=== PATIENT | female | born 1990 | race Caucasian/White ===

== ENCOUNTER 2016-10-20 19:46 | Emergency (ER) | payer BC, OTHER ==
[~2016-10-20] VITALS: Ht 167.6 cm; Wt 83.9 kg
[2016-10-20] MEDS ORDERED: NS IV 1000 ML 1,000 ML IV ONE (20:10)
[2016-10-20 20:27] LABS: BILIRUBIN,URINE NEGATIVE (NEGATIVE); KETONES,URINE NEGATIVE (NEGATIVE); LEUKOCYTE ESTERASE ,URINE NEGATIVE (NEGATIVE); NITRITE,URINE NEGATIVE (NEGATIVE); PH,URINE 5 (5-9); PROTEIN,URINE 1+ (NEGATIVE); UROBILINOGEN,URINE NORMAL (NORMAL)
[2016-10-20 20:41] LABS: WBC,URINE 0-2 /HPF
[2016-10-20 21:13] LABS: BASOPHILS % (AUTO) 0 % (0-10); EOSINOPHILS # (AUTO) 0.2 10^3/uL (0.0-0.3); EOSINOPHILS % (AUTO) 2 % (0-10); LYMPHOCYTES # (AUTO) 2.7 X 10^3 (1.0-4.0); LYMPHOCYTES % (AUTO) 24 % (12-44); MEAN CORPUSCULAR HEMOGLOBIN 29 PG (25-34); MEAN CORPUSCULAR HGB CONC 33 G/DL (32-36); MEAN CORPUSCULAR VOLUME 89 FL (80-99); MEAN PLATELET VOLUME 9.6 FL (7.4-10.4); MONOCYTES # (AUTO) 0.7 X 10^3 (0.0-1.0); MONOCYTES % (AUTO) 7 % (0-12); NEUTROPHILS # (AUTO) 7.7 X 10^3 (1.8-7.8); NEUTROPHILS % (AUTO) 68 % (42-75); PLATELET COUNT 277 10^3/uL (130-400); RED BLOOD COUNT 4.59 10^6/uL (4.35-5.85); RED CELL DISTRIBUTION WIDTH 13.7 % (10.0-14.5); WHITE BLOOD COUNT 11.3 10^3/uL (4.3-11.0)
--- NOTE | 2016-10-20 21:32 | ED General ---
General Chief Complaint: General Problems/Pain Stated Complaint: LIGHTHEADED Nursing Triage Note: PT TO ED 7 W/ C/O FEELING LIGHTHEADED, DIZZY, SEEING SPOTS ET TINGLING/REDNESS TO FACE X3 DAYS WHILE AT WORK. DENIES ANY RECENT CHANGES IN DIET, ACTIVITY, MEDS Nursing Sepsis Screen: No Definite Risk Source of Information: Patient Exam Limitations: No Limitations History of Present Illness Time Seen by Provider: 20:10 Initial Comments Here with report of intermittently feeling lightheaded and dizzy at work and throughout the day for the last 3 days. Reports eating and drinking okay. No difficulty with wound to the bathroom. Denies other concerns. Timing/Duration: 2-3 Days, Getting Worse, Intermittent Severity: Mild Associated Systoms: No Chest Pain, No Cough, No Diaphoresis, No Fever/Chills, No Headaches, No Nausea/Vomiting, No Shortness of Air, Weakness Allergies and Home Medications Allergies Coded Allergies: egg (Verified Allergy, Unknown, 10/20/16) vancomycin (Verified Allergy, Unknown, 10/20/16) Home Medications No Active Prescriptions or Reported Meds Constitutional: see HPI, No chills, No fever, weakness (lightheadedness) EENTM: No nose congestion, No throat pain Respiratory: No cough, No short of breath Cardiovascular: No chest pain, No edema, No palpitations Gastrointestinal: No abdominal pain, No diarrhea, No nausea, No vomiting Genitourinary: no symptoms reported Musculoskeletal: no symptoms reported Skin: no symptoms reported Psychiatric/Neurological: See HPI All Other Systems Reviewed Negative Unless Noted: Yes Past Smlzrti-Jyxkzj-Docxue Hx Patient Social History Alcohol Use: Denies Use Recreational Drug Use: No Smoking Status: Never a Smoker 2nd Hand Smoke Exposure: No Recent Foreign Travel: No Contact w/Someone Who Travel: No Recent Infectious Disease Expo: No Recent Hopitalizations: No Surgeries HX Surgeries: Yes (lipoma removal. Pilonidal cyst.) Respiratory Hx Respiratory Disorders: No Cardiovascular Hx Cardiac Disorders: No Neurological Hx Neurological Disorders: No Genitourinary Hx Genitourinary Disorders: No Gastrointestinal Hx Gastrointestinal Disorders: No Musculoskeletal Hx Musculoskeletal Disorders: No Psychosocial Hx Psychiatric Problems: Yes Behavioral Health Disorders: Anxiety Reviewed Nursing Assessment Reviewed/Agree w Nursing PMH: Yes Family Medical History Significant Family History: No Pertinent Family Hx Physical Exam Vital Signs Vital Sign - Last 12Hours 10/20/16 19:56 Temp 98.1 Pulse 85 Resp 20 B/P (MAP) 149/79 Pulse Ox 98 O2 Delivery Room Air Capillary Refill : Less Than 3 Seconds General Appearance: No Apparent Distress, WD/WN HEENT: PERRL/EOMI, Pharynx Normal Neck: Non Tender, Supple Respiratory: Lungs Clear, No Respiratory Distress Cardiovascular: Regular Rate, Rhythm, No Murmur Gastrointestinal: Non Tender, Soft Back: Normal Inspection, No CVA Tenderness, No Vertebral Tenderness Extremity: Non Tender, No Calf Tenderness Neurologic/Psychiatric: Alert, Oriented x3 Skin: Normal Color, Warm/Dry Progress/Results/Core Measures Results/Orders Lab Results Laboratory Tests Test 10/20/16 20:18 10/20/16 20:55 Range/Units Urine Color YELLOW Urine Clarity SLIGHTLY CLOUDY Urine pH 5 5-9 Urine Specific [place] 1.020 1.016-1.022 Urine Protein 1+ H NEGATIVE Urine Glucose (UA) NEGATIVE NEGATIVE Urine Ketones NEGATIVE NEGATIVE Urine Nitrite NEGATIVE NEGATIVE Urine Bilirubin NEGATIVE NEGATIVE Urine Urobilinogen NORMAL NORMAL MG/DL Urine Leukocyte Esterase NEGATIVE NEGATIVE Urine RBC (Auto) 1+ H NEGATIVE Urine RBC RARE /HPF Urine WBC 0-2 /HPF Urine Squamous Epithelial Cells 10-25 H /HPF Urine Crystals NONE /LPF Urine Bacteria FEW H /HPF Urine Casts NONE /LPF Urine Mucus LARGE H /LPF Urine Culture Indicated NO White Blood Count 11.3 H 4.3-11.0 10^3/uL Red Blood Count 4.59 4.35-5.85 10^6/uL Hemoglobin 13.3 11.5-16.0 G/DL Hematocrit 41 35-52 % Mean Corpuscular Volume 89 80-99 FL Mean Corpuscular Hemoglobin 29 25-34 PG Mean Corpuscular Hemoglobin Concent 33 32-36 G/DL Red Cell Distribution Width 13.7 10.0-14.5 % Platelet Count 277 130-400 10^3/uL Mean Platelet Volume 9.6 7.4-10.4 FL Neutrophils (%) (Auto) 68 42-75 % Lymphocytes (%) (Auto) 24 12-44 % Monocytes (%) (Auto) 7 0-12 % Eosinophils (%) (Auto) 2 0-10 % Basophils (%) (Auto) 0 0-10 % Neutrophils # (Auto) 7.7 1.8-7.8 X 10^3 Lymphocytes # (Auto) 2.7 1.0-4.0 X 10^3 Monocytes # (Auto) 0.7 0.0-1.0 X 10^3 Eosinophils # (Auto) 0.2 0.0-0.3 10^3/uL Basophils # (Auto) 0.0 0.0-0.1 10^3/uL Sodium Level 139 135-145 MMOL/L Potassium Level 3.4 L 3.6-5.0 MMOL/L Chloride Level 106 98-107 MMOL/L Carbon Dioxide Level 23 21-32 MMOL/L Anion Gap 10 5-14 MMOL/L Blood Urea Nitrogen 14 7-18 MG/DL Creatinine 0.86 0.60-1.30 MG/DL Estimat Glomerular Filtration Rate > 60 BUN/Creatinine Ratio 16 Glucose Level 88 70-105 MG/DL Calcium Level 9.2 8.5-10.1 MG/DL Magnesium Level 2.2 1.8-2.4 MG/DL Total Bilirubin 0.4 0.1-1.0 MG/DL Aspartate Amino Transf (AST/SGOT) 18 5-34 U/L Alanine Aminotransferase (ALT/SGPT) 19 0-55 U/L Alkaline Phosphatase 60 40-136 U/L Total Protein 7.5 6.4-8.2 GM/DL Albumin 4.3 3.2-4.5 GM/DL My Orders Orders - KATIA PAK MD Cbc With Automated Diff (10/20/16 20:10) Comprehensive Metabolic Panel (10/20/16 20:10) Magnesium (10/20/16 20:10) Ua Culture If Indicated (10/20/16 20:10) Saline Lock/Iv-Start (10/20/16 20:10) Ns Iv 1000 Ml (Sodium Chloride 0.9%) (10/20/16 20:10) Urine Bedside (10/20/16 20:10) Thyroid Stimulating Hormone (10/20/16 22:21) Medications Given in ED Current Medications Medications Dose Ordered Sig/Hi Route Start Time Stop Time Status Last Admin Dose Admin Sodium Chloride 1,000 ml @ 0 mls/hr Q0M ONCE IV 10/20/16 20:10 10/20/16 20:12 DC 10/20/16 21:01 1,000 MLS/HR Vital Signs/I&O Vital Sign - Last 12Hours 10/20/16 19:56 Temp 98.1 Pulse 85 Resp 20 B/P (MAP) 149/79 Pulse Ox 98 O2 Delivery Room Air Blood Pressure Mean: 102 Point of Care Testing Urine -Bedside: Negative Progress Note : Progress Note Seen and evaluated. IV, labs, UA, UCG, normal saline 1 L bolus ordered. Monitor patient. 2220: Is a Little better. No acute findings. Discharged home with return precautions. Patient and family verbalize understanding of instructions and agreement with plan. Departure Impression Impression: Primary Impression: Fatigue Qualified Codes: R53.83 - Other fatigue Additional Impression: Dehydration Disposition: HOME, SELF-CARE Condition: Improved Departure-Patient Inst. Decision time for Depature: 22:27 Referrals: SHAWNA WEBER MD (PCP/Family) Primary Care Physician Patient Instructions: Dehydration, Adult (DC) Add. Discharge Instructions: All discharge instructions reviewed with patient and/or family. Voiced understanding. Drink plenty of fluids and eat a normal diet. Follow-up with your DrCharline in a few days for recheck. Return for worsening, fever, vomiting, weakness, rhythm problems or other concerns as needed. Get plenty of rest. Scripts No Active Prescriptions or Reported Meds KATIA PAK MD Oct 20, 2016 21:32
[2016-10-20 21:38] LABS: ALANINE AMINOTRANSFERASE 19 U/L (0-55); ALBUMIN 4.3 GM/DL (3.2-4.5); ANION GAP 10 MMOL/L (5-14); ASPARTATE AMINO TRANSFERASE 18 U/L (5-34); BILIRUBIN,TOTAL 0.4 MG/DL (0.1-1.0); BLOOD UREA NITROGEN 14 MG/DL (7-18); BUN/CREATININE RATIO 16; CALCIUM 9.2 MG/DL (8.5-10.1); CARBON DIOXIDE 23 MMOL/L (21-32); CHLORIDE 106 MMOL/L (98-107); CREATININE SERUM 0.86 MG/DL (0.60-1.30); GFR ESTIMATED > 60; GLUCOSE 88 MG/DL (70-105); MAGNESIUM 2.2 MG/DL (1.8-2.4); POTASSIUM 3.4 MMOL/L (3.6-5.0); SODIUM 139 MMOL/L (135-145); TOTAL PROTEIN 7.5 GM/DL (6.4-8.2)
[2016-10-20 22:32] VITALS: BP 123/82
== END 2016-10-20 22:32 | disposition home or self-care (01) ==
LOC: ER 19:50
DX: R53.83 Other fatigue (principal); E86.0 Dehydration; F41.9 Anxiety disorder, unspecified
CPT/HCPCS: 36415; 80053; 81000; 83735; 84443; 84703; 85025; 96360

== ENCOUNTER → 2017-03-22 | Outpatient (CLI) | payer BC ==
--- NOTE | 2017-03-22 18:12 | Diagnostic Imaging Report ---
CLINICAL INDICATION: Patient with pain and swelling on anterior part of the foot over metatarsals. No known injury. EXAM: X-ray of the right foot, three views. COMPARISON: None. FINDINGS AND IMPRESSION: 1: There is concern for possible slight concave deformity and sclerosis involving the proximal metaphysis/base of the second metatarsal bone, which is best seen on the oblique view. This may represent a stress fracture. Correlation for pain in this region is suggested. 2: Otherwise, the remainder of the right foot is unremarkable. There are no significant degenerative changes. Dictated by: Dictated on workstation # [id number]
== END ==
LOC: RAD 16:55
PROVIDERS: ATTEND Nurse Practitioner Family
DX: M79.89 Other specified soft tissue disorders (principal); M79.671 Pain in right foot
CPT/HCPCS: 73630

== ENCOUNTER → 2017-05-03 | Outpatient (CLI) | payer BC ==
--- NOTE | 2017-05-03 12:25 | Diagnostic Imaging Report ---
INDICATION: Right foot stress fracture. Time of exam: 11:13 AM Correlation is made with prior study from 03/22/2017. There has been development of some periosteal reaction and callus in the distal aspect of the second metatarsal, consistent with healing fracture. Remaining metatarsals are intact and alignment is normal. Midfoot and hindfoot are unremarkable. IMPRESSION: Healing distal second metatarsal fracture when compared with exam from 03/22/2017. Dictated by: Dictated on workstation # [id number]
== END ==
LOC: RAD 10:37
PROVIDERS: ATTEND Family Medicine
DX: M84.374D Stress fracture, right foot, subsequent encounter for fracture with routine healing (principal)
CPT/HCPCS: 73630

== ENCOUNTER 2018-03-07 17:11 | Emergency (ER) | payer BC ==
[~2018-03-07] VITALS: Ht 167.6 cm; Wt 90.7 kg
[2018-03-07] MEDS ORDERED: HYDROcodone/APAP 5 MG/325 MG (LORTAB) TAB PO STA (18:18)
[2018-03-07] MEDS ORDERED: CYCLOBENZAPRINE 10 MG (FLEXERIL) TAB PO STA (18:18)
[2018-03-07] MEDS ORDERED: DEXAMETHASONE 1 MG/ML 5 ML UDC (DECADRON) ORAL SOLUTION PO STA (18:55)
[2018-03-07] MEDS ORDERED: LIDOCAINE 1% INJ 20 ML 20 ML VIAL INJ ONE (19:00)
[2018-03-07] MEDS ORDERED: DEXAMETHASONE 10 MG/ML (DECADRON) 1 ML VIAL IM ONE (19:00)
--- NOTE | 2018-03-07 19:35 | ED Back Pain ---
General Chief Complaint: General Problems/Pain Stated Complaint: R LEG PAIN,L HAND NUMBNESS Nursing Triage Note: AMB TO ROOM WITH MALE PATIENT REPORTS SINCE SEPTEMBER HAS HAS PROBLEM WITH HER SCIATICA. IS BEEN SEEING A CHIROPRACTOR WHO TOLD THOUGHT IT WAS HER PIRIFORMIS MUSCLE CAUISNG THE PROBLEMS HAD TAKEN MUSCLE REXLANT WITH NO RELIEF. HAS BEEN ONLY TAKING 200MG OF IBUBROFEN ALSO REPORTS THAT FOR LAST SEVERAL DAYS HAS HAD NUMBNESS IN FACE DOWN R ARM NOW IT IS IN LEFT ARM FOR PAST 3 DAYS. TEARFUL ON ADMIT Nursing Sepsis Screen: No Definite Risk History of Present Illness Date Seen by Provider: Mar 07, 2018 Time Seen by Provider: 17:30 Initial Comments 28-year-old female presents for low back and right hip pain. She was diagnosed with sciatica this summer and her symptoms have been intermittent since then. She states for the last several days they have gotten significantly worse. She denies any urinary or bowel incontinence or retention. She has been taking ibuprofen 200 mg every 6 hours with minimal relief. In addition she has intermittent paresthesias on her face and arms. She denies any injury to her back or neck. She was seen initially at this summer by her primary care provider but has not had follow-up. She has been seeing a chiropractor but some improvement until recently. Location: Lumbar Spine, Paraspinous Muscles Timing/Duration: Getting Worse Severity: Moderate Pain/Injury Location: Back Radiation: Buttocks, Upper Legs (right) Associated Symptoms: muscle spasms, weakness (right lower extremity), lower back pain; No loss of bladder control, No loss of bowel control Allergies and Home Medications Allergies Coded Allergies: egg (Verified Allergy, Unknown, 10/20/16) vancomycin (Verified Allergy, Unknown, 10/20/16) Home Medications No Active Prescriptions or Reported Meds Patient Home Medication List Home Medication List Reviewed: Yes Review of Systems Constitutional: no symptoms reported, see HPI : Yes Expected Date of Delivery: Nov 03, 2017 LMP: Jan 29, 2018 Control/STD Prophylaxis: None Musculoskeletal: see HPI, back pain, muscle cramps, muscle weakness (right lower extremity) All Other Systems Reviewed Negative Unless Noted: Yes Past Wbwhdoa-Dumdzz-Aukigo Hx Past Med/Social Hx: Reviewed Nursing Past Med/Soc Hx Patient Social History Alcohol Use: Denies Use Recreational Drug Use: No Smoking Status: Never a Smoker 2nd Hand Smoke Exposure: No Recent Foreign Travel: No Contact w/Someone Who Travel: No Recent Infectious Disease Expo: No Recent Hopitalizations: No Past Medical History Surgeries: Yes (FATTY TUMOR FROM SIDE, EGD, PILONIDAL CYST) Respiratory: No Cardiac: No Neurological: No Genitourinary: No Gastrointestinal: No Musculoskeletal: No Endocrine: No HEENT: No Cancer: No Psychosocial: No Anxiety Integumentary: No Blood Disorders: No Family Medical History No Pertinent Family Hx Physical Exam Vital Signs Vital Signs - First Documented 03/07/18 17:17 Temp 96.9 Pulse 126 Resp 18 B/P (MAP) 151/72 (98) Pulse Ox 95 O2 Delivery Room Air Capillary Refill : Less Than 3 Seconds Height, Weight, BMI Height: 5'6.00" Weight: 200lbs. oz. 90.878655uf; BMI Method:Stated General Appearance: No Apparent Distress, WD/WN Cardiovascular: Regular Rate, Rhythm, No Edema, No Murmur, Normal Peripheral Pulses Respiratory: Chest Non Tender, Lungs Clear, Normal Breath Sounds Gastrointestinal: Normal Bowel Sounds, Non Tender, Soft Back: Normal Inspection, No CVA Tenderness; No CVA Tenderness (L), No CVA Tenderness (R); Decreased Range of Motion (secondary to pain), Muscle Spasm Neurologic/Psychiatric: Alert, Oriented x3, No Motor/Sensory Deficits, Normal Mood/Affect Skin: Normal Color, Warm/Dry Patient ambulates with an antalgic gait favoring the right lower extremity. She is able to rise on to her toes however she had not toe walk on the right. She can walk on her heels bilaterally. She has weakness 4-/5 Hip flexors on the right, otherwise power is 5/5 L5-S1 on the right and 5/5 L4-S1 on the left. She has a positive straight leg raising sign on the right. Progress/Results/Core Measures Results/Orders My Orders Orders - VERONICA STARR Urine Bedside (03/07/18 18:06) Cyclobenzaprine Tablet (Flexeril Tablet) (03/07/18 18:18) Hydrocodone/Apap 5/325 Tablet (Lortab 5 (03/07/18 18:18) Lidocaine 1% Inj 20 Ml (Xylocaine 1% Inj (03/07/18 19:00) Dexamethasone Injection (Decadron Inject (03/07/18 19:00) Medications Given in ED Current Medications Medications Dose Ordered Sig/Hi Route Start Time Stop Time Status Last Admin Dose Admin Dexamethasone Sodium Phosphate 10 mg ONCE ONCE IM 03/07/18 19:00 03/07/18 19:01 DC 03/07/18 19:17 10 MG Lidocaine HCl 20 ml ONCE ONCE INJ 03/07/18 19:00 03/07/18 19:01 DC 03/07/18 19:17 20 ML Vital Signs/I&O 03/07/18 03/07/18 17:17 19:38 Temp 96.9 96.9 Pulse 126 126 Resp 18 18 B/P (MAP) 151/72 (98) 151/72 (98) Pulse Ox 95 95 O2 Delivery Room Air Blood Pressure Mean: 98 Urine -Bedside: Positive Progress Progress Note : Time: 17:30 Progress Note Patient seen and evaluated, recommended obtaining a urine hCG, pending those results will get a CT scan of the lumbar spine. We will give Flexeril 10 mg and Vicodin 5/325 mg for pain and muscle spasms. 1750 patient's hCG positive, results discussed with the patient and her significant other. Due to this we will not be able to obtain the CT scan. Additional options for assessing her spine may include an MRI scheduled by her primary care provider. She does have exquisite tenderness over the right trochanteric bursa. I believe this is due to her gait and favoring the right lower leg. She agreed to a trochanteric bursa injection, right. Discussed patient's assessment and plan of care with Dr. Espinoza, concurred with this. 1830 using sterile technique, the skin over the right greater trochanter was prepped with Betadine. The trochanteric bursa was then injected with 10 mg of Decadron and 8 ML's of 1% lidocaine. A sterile Band-Aid was applied. The patient tolerated the procedure well, and ice pack was placed over the injection site. The patient's neurovascular status was intact, post procedure. 0 discharge instructions and return precautions reviewed with the patient. Stressed the importance that she began taking a vitamin and follow up with her primary care provider, and schedule with REQUIREMENTS MANAGER. Departure Impression Primary Impression: First trimester Additional Impressions: Lumbar spine pain Lumbosacral radiculopathy at L4 Trochanteric bursitis of right hip Disposition: HOME, SELF-CARE Condition: Improved Departure-Patient Inst. Decision time for Depature: 19:00 Referrals: SHAWNA WEBER MD (PCP/Family) Primary Care Physician Patient Instructions: - The First Month, Radiculopathy (DC), Sciatica (DC) Add. Discharge Instructions: Begin a vitamin, take 1 daily with food. Increase water intake, one bottle every 2 hours while awake. Use crutches to ambulate when you have weakness in her right leg or to assist with back pain. Consider physical therapy, [facility] You may take Tylenol 650 mg every 6 hours for pain. Continue doing your back exercises. Apply ice pack to right hip and low back for 20 minutes every 2 hours. Schedule follow-up appointment with and set up care with REQUIREMENTS MANAGER. Return to emergency department for increased or new back pain, bowel or bladder incontinence or retention, vaginal bleeding, or new problems. All discharge instructions reviewed with patient and/or family. Voiced understanding. Scripts No Active Prescriptions or Reported Meds VERONICA STARR Mar 07, 2018 19:35
[2018-03-07 19:38] VITALS: BP 151/72
== END 2018-03-07 19:40 | disposition home or self-care (01) ==
LOC: EDUNIT# 17:11 → ER 17:12
DX: O99.89 Other specified diseases and conditions complicating pregnancy, childbirth and the puerperium (principal); M54.17 Radiculopathy, lumbosacral region; M70.61 Trochanteric bursitis, right hip; O99.340 Other mental disorders complicating pregnancy, unspecified trimester; F41.9 Anxiety disorder, unspecified; Z88.0 Allergy status to penicillin; Z3A.00 Weeks of gestation of pregnancy not specified
CPT/HCPCS: 84703; 99284

== ENCOUNTER → 2018-03-13 | Outpatient (CLI) | payer BC ==
[~2018-03-13] MED LIST: HYDR-4226 PO
--- NOTE | 2018-03-13 18:19 | Diagnostic Imaging Report ---
INDICATION: Severe back pain during . FINDINGS: Obstetrical ultrasonography is performed with transabdominal and transvaginal approach. There is an intrauterine gestational sac containing yolk sac and pole. Morphology is unremarkable. [place]-rump length is 0.5 cm, indicating gestational age of 6 weeks and 2 days. There is no significant adjacent hematoma. Maternal adnexal regions are unremarkable with an approximately 3.6 cm cyst on the left. There is also nabothian cyst noted in the cervix. IMPRESSION: Findings are compatible with intrauterine gestation with estimated age of 6 weeks and 2 days. Sonographic EDC is 11/05/2018. Dictated by: Dictated on workstation # [id number]
== END ==
LOC: RAD 15:21
PROVIDERS: ATTEND Family Medicine
DX: O26.891 Other specified pregnancy related conditions, first trimester (principal); M54.9 Dorsalgia, unspecified; Z3A.01 Less than 8 weeks gestation of pregnancy
CPT/HCPCS: 76801; 76817

== ENCOUNTER 2018-03-14 10:25 | Emergency (ER) | payer BC ==
[~2018-03-14] VITALS: Ht 167.6 cm; Wt 90.7 kg
[2018-03-14] MEDS ORDERED: HYDROcodone/APAP 7.5 MG/325 MG (LORTAB, LORCET PLUS) TABLET PO ONE (11:30)
--- NOTE | 2018-03-14 11:32 | ED Lower Extremity ---
General Chief Complaint: Lower Extremity Stated Complaint: BACK PAIN Nursing Triage Note: Pt reports R leg pain x6 months and intermittent numbness to extremities. Pt was seen in ED for these symptoms on 03/07 and was unable to have CT scan completed due to positive test. Pt had f/u w/ Dr Gonzales yesterday and had US done. Pt having increased pain today including pain to lower back, unkown results from yesterdays appt. Pt called Dr. Murray's office today to report increased pain and was told to come to ED for evaluation. Nursing Sepsis Screen: No Definite Risk Source: patient Exam Limitations: no limitations History of Present Illness Date Seen by Provider: Mar 14, 2018 Time Seen by Provider: 11:28 Initial Comments ER with about 6 months worth of right leg pain, muscle spasms and numbness. She also has right low back pain. No known injury at the onset of this. She was seen here on 03/07/18 due to the pain worsening and was found to have a positive test so imaging studies such as CT could not be ordered at that time. She did have an ultrasound done yesterday which showed a normal intrauterine 6 weeks and 2 days. She denies any of the red flags such as fevers or chills, dysuria, loss of bowel or bladder control, saddle anesthesia or history of cancer or IV drug use. She states that she has tried physical therapy, acupuncture which did transiently improve her symptoms but the best they could do was to reduce the pain to 2 out of 10. Currently her pain is 9 out of 10. She did receive an injection over the right trochanteric bursa of lidocaine and Decadron on 03/07 which she states improved her pain for a couple of hours before the pain returned. Onset: just prior to arrival Severity: moderate Pain/Injury Location: right hip, right leg Method of Injury: unknown Modifying Factors: Worse With Movement Allergies and Home Medications Allergies Coded Allergies: egg (Verified Allergy, Unknown, 10/20/16) vancomycin (Verified Allergy, Unknown, 10/20/16) Home Medications Hydrocodone/Acetaminophen 1 Each Tablet, 1 EACH PO Q4H PRN for PAIN-MODERATE Prescribed by: SIERRA BARONE on 03/14/18 1137 Patient Home Medication List Home Medication List Reviewed: Yes Review of Systems Constitutional: see HPI; No chills EENTM: see HPI Respiratory: no symptoms reported Cardiovascular: no symptoms reported Genitourinary: no symptoms reported Musculoskeletal: see HPI, back pain Skin: no symptoms reported Psychiatric/Neurological: No Symptoms Reported Past Beezvrb-Qwxbol-Zrjtsi Hx Patient Social History Alcohol Use: Denies Use Recreational Drug Use: No Smoking Status: Never a Smoker 2nd Hand Smoke Exposure: No Recent Foreign Travel: No Contact w/Someone Who Travel: No Recent Infectious Disease Expo: No Recent Hopitalizations: No Seasonal Allergies Seasonal Allergies: No Past Medical History Surgeries: Yes (FATTY TUMOR FROM SIDE, EGD, PILONIDAL CYST) Respiratory: No Cardiac: No Neurological: No Expected Date of Delivery: Nov 05, 2018 Genitourinary: No Gastrointestinal: No Musculoskeletal: No Endocrine: No HEENT: No Cancer: No Psychosocial: No Anxiety Integumentary: No Blood Disorders: No Family Medical History No Pertinent Family Hx Physical Exam Vital Signs Vital Signs - First Documented 03/14/18 10:34 Temp 98.3 Pulse 103 Resp 18 B/P (MAP) 138/84 (102) Pulse Ox 98 O2 Delivery Room Air Capillary Refill : Less Than 3 Seconds Height, Weight, BMI Height: 5'6.00" Weight: 200lbs. oz. 90.554053ob; BMI Method:Stated General Appearance: WD/WN, no apparent distress HEENT: PERRL/EOMI, normal ENT inspection Neck: non-tender, full range of motion Respiratory: no respiratory distress, no accessory muscle use Hips: left hip non-tender; bilateral hip normal inspection, bilateral hip normal range of motion; right hip soft tissue tenderness (tenderness over the trochanteric bursa on the right) Legs: bilateral leg non-tender, bilateral leg normal inspection, bilateral leg normal range of motion; right leg other (positive straight leg raise test on right) Knees: bilateral knee non-tender, bilateral knee normal inspection, bilateral knee normal range of motion Ankles: bilateral ankle non-tender, bilateral ankle normal inspection, bilateral ankle normal range of motion Neurologic/Psychiatric: alert, normal mood/affect, oriented x 3 Skin: normal color, warm/dry Her reported pain is in the L4-S1 distribution on the right. She does have a positive straight leg raise test on the right. Her plantar flexion of the right foot is 4 out of 5 in strength, on the left 5 out of 5. Progress/Results/Core Measures Results/Orders Lab Results Laboratory Tests Test 03/14/18 12:00 03/14/18 12:32 Range/Units White Blood Count 11.4 H 4.3-11.0 10^3/uL Red Blood Count 4.43 4.35-5.85 10^6/uL Hemoglobin 12.9 11.5-16.0 G/DL Hematocrit 39 35-52 % Mean Corpuscular Volume 89 80-99 FL Mean Corpuscular Hemoglobin 29 25-34 PG Mean Corpuscular Hemoglobin Concent 33 32-36 G/DL Red Cell Distribution Width 14.2 10.0-14.5 % Platelet Count 277 130-400 10^3/uL Mean Platelet Volume 9.3 7.4-10.4 FL Neutrophils (%) (Auto) 75 42-75 % Lymphocytes (%) (Auto) 18 12-44 % Monocytes (%) (Auto) 6 0-12 % Eosinophils (%) (Auto) 1 0-10 % Basophils (%) (Auto) 0 0-10 % Neutrophils # (Auto) 8.6 H 1.8-7.8 X 10^3 Lymphocytes # (Auto) 2.1 1.0-4.0 X 10^3 Monocytes # (Auto) 0.6 0.0-1.0 X 10^3 Eosinophils # (Auto) 0.1 0.0-0.3 10^3/uL Basophils # (Auto) 0.0 0.0-0.1 10^3/uL Sodium Level 133 L 135-145 MMOL/L Potassium Level 4.1 3.6-5.0 MMOL/L Chloride Level 105 98-107 MMOL/L Carbon Dioxide Level 19 L 21-32 MMOL/L Anion Gap 9 5-14 MMOL/L Blood Urea Nitrogen 10 7-18 MG/DL Creatinine 0.71 0.60-1.30 MG/DL Estimat Glomerular Filtration Rate > 60 BUN/Creatinine Ratio 14 Glucose Level 95 70-105 MG/DL Calcium Level 9.2 8.5-10.1 MG/DL My Orders Orders - SIERRA BARONE APRN Hydrocodone/Apap 7.5/325 Tab (Lortab 7. (03/14/18 11:30) Cbc With Automated Diff (03/14/18 11:28) Basic Metabolic Panel (03/14/18 11:28) Ua Culture If Indicated (03/14/18 11:28) Medications Given in ED Current Medications Medications Dose Ordered Sig/Hi Route Start Time Stop Time Status Last Admin Dose Admin Acetaminophen/ Hydrocodone Bitart 1 ea ONCE ONCE PO 03/14/18 11:30 03/14/18 11:31 DC 03/14/18 11:31 1 EA Vital Signs/I&O 03/14/18 10:34 Temp 98.3 Pulse 103 Resp 18 B/P (MAP) 138/84 (102) Pulse Ox 98 O2 Delivery Room Air Blood Pressure Mean: 102 Departure Communication (Admissions) Due to the absence of any cauda equina symptoms or red flags I'm unable to order MRI in the emergency room of the lumbar spine. These need to be prior also advised by insurance. I did speak with Dr. Gonzales. I will fax my note in their office and they will proceed with obtaining prior authorization for the lumbar spine MRI. [facility], [place] NAME: MONSE REARDON [facility] REC#: [id number] PT STATUS: REG CLI : 1990 PHYSICIAN: SHAWNA GONZALES MD ADMIT DATE: 03/13/18/RAD Draft Date of Exam:03/13/18 US OB<14 WKS SNGLE W/TRANSVAG INDICATION: Severe back pain during . FINDINGS: Obstetrical ultrasonography is performed with transabdominal and transvaginal approach. There is an intrauterine gestational sac containing yolk sac and pole. Morphology is unremarkable. [place]ove-rump length is 0.5 cm, indicating gestational age of 6 weeks and 2 days. There is no significant adjacent hematoma. Maternal adnexal regions are unremarkable with an approximately 3.6 cm cyst on the left. There is also nabothian cyst noted in the cervix. IMPRESSION: Findings are compatible with intrauterine gestation with estimated age of 6 weeks and 2 days. Sonographic EDC is 11/05/2018. Dictated on workstation # [id number] Dict: 03/13/18 1735 Trans: 03/13/18 1819 [id number] Interpreted by: ROGELIO NGUYEN MD Electronically signed by: Impression Primary Impression: Lumbar radiculopathy Disposition: 01 HOME, SELF-CARE Condition: Stable Departure-Patient Inst. Decision time for Depature: 11:32 Referrals: SHAWNA GONZALES MD (PCP/Family) Primary Care Physician Patient Instructions: Radiculopathy (DC) Add. Discharge Instructions: 1. Call Dr. Tesfaye office today to follow-up as they will be scheduling the MRI. Take pain medication as needed in the meantime. All discharge instructions reviewed with patient and/or family. Voiced understanding. Scripts Hydrocodone/Acetaminophen ([place] 5-325 Tablet) 1 Each Tablet 1 EACH PO Q4H PRN for PAIN-MODERATE MDD 10, #14 TAB Prov: SIERRA BARONE APRN 03/14/18 Copy Copies To 1: SHAWNA GONZALES MD, PETER J APRN Mar 14, 2018 11:32
[2018-03-14] MEDS ORDERED: HYDR-4226 PO (11:37)
[2018-03-14 12:10] LABS: BASOPHILS % (AUTO) 0 % (0-10); EOSINOPHILS # (AUTO) 0.1 10^3/uL (0.0-0.3); EOSINOPHILS % (AUTO) 1 % (0-10); HEMATOCRIT 39 % (35-52); HEMOGLOBIN 12.9 G/DL (11.5-16.0); LYMPHOCYTES # (AUTO) 2.1 X 10^3 (1.0-4.0); LYMPHOCYTES % (AUTO) 18 % (12-44); MEAN CORPUSCULAR HEMOGLOBIN 29 PG (25-34); MEAN CORPUSCULAR HGB CONC 33 G/DL (32-36); MEAN CORPUSCULAR VOLUME 89 FL (80-99); MEAN PLATELET VOLUME 9.3 FL (7.4-10.4); MONOCYTES # (AUTO) 0.6 X 10^3 (0.0-1.0); MONOCYTES % (AUTO) 6 % (0-12); NEUTROPHILS # (AUTO) 8.6 X 10^3 (1.8-7.8); NEUTROPHILS % (AUTO) 75 % (42-75); PLATELET COUNT 277 10^3/uL (130-400); RED BLOOD COUNT 4.43 10^6/uL (4.35-5.85); RED CELL DISTRIBUTION WIDTH 14.2 % (10.0-14.5); WHITE BLOOD COUNT 11.4 10^3/uL (4.3-11.0)
[2018-03-14 12:22] LABS: BUN/CREATININE RATIO 14; CALCIUM 9.2 MG/DL (8.5-10.1); CARBON DIOXIDE 19 MMOL/L (21-32); CHLORIDE 105 MMOL/L (98-107); CREATININE SERUM 0.71 MG/DL (0.60-1.30); GFR ESTIMATED > 60; GLUCOSE 95 MG/DL (70-105); POTASSIUM 4.1 MMOL/L (3.6-5.0); SODIUM 133 MMOL/L (135-145)
[2018-03-14 12:35] VITALS: BP 138/84
[2018-03-14 12:38] LABS: BILIRUBIN,URINE NEGATIVE (NEGATIVE); CLARITY,URINE VERY CLOUDY; COLOR,URINE YELLOW; GLUCOSE, URINE (UA) NEGATIVE (NEGATIVE); KETONES,URINE NEGATIVE (NEGATIVE); LEUKOCYTE ESTERASE ,URINE NEGATIVE (NEGATIVE); NITRITE,URINE NEGATIVE (NEGATIVE); PH,URINE 5 (5-9); PROTEIN,URINE NEGATIVE (NEGATIVE); UROBILINOGEN,URINE NORMAL (NORMAL)
[2018-03-14 12:51] LABS: BACTERIA,URINE MODERATE /HPF; RBC,URINE 0-2 /HPF; WBC,URINE 0-2 /HPF
== END 2018-03-14 12:39 | disposition home or self-care (01) ==
LOC: EDUNIT# 10:25 → ER 10:27
DX: O99.89 Other specified diseases and conditions complicating pregnancy, childbirth and the puerperium (principal); M54.16 Radiculopathy, lumbar region; O99.341 Other mental disorders complicating pregnancy, first trimester; F41.9 Anxiety disorder, unspecified; Z88.0 Allergy status to penicillin; Z3A.01 Less than 8 weeks gestation of pregnancy
CPT/HCPCS: 36415; 80048; 81000; 85025; 99283

== ENCOUNTER → 2021-12-18 | Outpatient (CLI) | payer BC | LOC: LAB 08:49 | PROVIDERS: ATTEND Midwife | DX: Z34.81 Encounter for supervision of other normal pregnancy, first trimester (principal); Z3A.00 Weeks of gestation of pregnancy not specified | CPT/HCPCS: 36415; 84702 ==